=== PATIENT | female | born 1965 | race Two or more races ===

== ENCOUNTER 2016-11-07 08:41 | Outpatient (CLI) | payer BC ==
[~2016-11-07 08:41] MED LIST: BENA20TA2 PO; CARV25TA2 PO; CLOP75TA2 PO; GLYB5TAB7 PO; METF10002 PO
[2016-11-07 09:23] LABS: BASOPHILS % (AUTO) 0.4 % (0.0-2.0); DIFF TOTAL % 100 %; EOSINOPHILS # (AUTO) 0.1 /CMM (0.0-0.7); EOSINOPHILS % (AUTO) 1.3 % (0.0-6.0); HEMATOCRIT 41 % (33-45); HEMOGLOBIN 13.9 g/dL (11.5-14.8); LYMPHOCYTES # (AUTO) 1.9 /CMM (0.8-4.8); LYMPHOCYTES % (AUTO) 46.4 % (20.0-44.0); MEAN CORPUSCULAR HEMOGLOBIN 29 PG (26.0-33.0); MEAN CORPUSCULAR HGB CONC 34 g/dl (31.0-36.0); MEAN CORPUSCULAR VOLUME 85 fL (82-100); MONOCYTES # (AUTO) 0.2 /CMM (0.1-1.30); MONOCYTES % (AUTO) 5.2 % (2.0-12.0); NEUTROPHILS # (AUTO) 1.9 /CMM (1.8-8.9); NEUTROPHILS % (AUTO) 46.7 % (43.0-81.0); PLATELET COUNT (AUTO) 188 /CMM (150-450); RED BLOOD CELL COUNT(AUTO) 4.84 MIL/uL (4.0-5.2)
[2016-11-07 09:37] LABS: ALBUMIN 4.1 g/dL (3.4-5.0); BILIRUBIN,TOTAL 0.3 mg/dL (0.2-1.0); CREATININE 0.7 mg/dL (0.6-1.3); POTASSIUM 4.5 mmol/L (3.5-5.1); TOTAL PROTEIN, SERUM 7.7 g/dL (6.4-8.2)
[2016-11-07 09:45] LABS: THYROID STIMULATING HORMONE 2.57 uIU/mL (0.358-3.74)
== END 2016-11-07 23:59 | disposition home or self-care (01) ==
LOC: LAB 08:41
DX: I10 Essential (primary) hypertension (principal); E11.9 Type 2 diabetes mellitus without complications; E66.9 Obesity, unspecified; R53.83 Other fatigue; R35.0 Frequency of micturition
CPT/HCPCS: 36415; 80053-TC; 82043; 84439-TC; 84443-TC; 84481; 85025-TC; 87086-TC

== ENCOUNTER 2016-11-07 08:51 | Outpatient (CLI) | payer OTHER | END 2016-11-07 23:59 | disposition home or self-care (01) | LOC: MRI 08:51 | DX: M19.012 Primary osteoarthritis, left shoulder (principal); S43.401D Unspecified sprain of right shoulder joint, subsequent encounter; S43.402D Unspecified sprain of left shoulder joint, subsequent encounter | CPT/HCPCS: 73221-TC ==

== ENCOUNTER 2017-01-04 10:38 | Outpatient (CLI) | payer BC ==
[2017-01-04 12:34] LABS: ALBUMIN 4.5 g/dL (3.4-5.0); BILIRUBIN,TOTAL 0.5 mg/dL (0.2-1.0); CALCIUM, SERUM 9.1 mg/dL (8.5-10.1); CREATININE 0.7 mg/dL (0.6-1.3); TOTAL PROTEIN, SERUM 8.2 g/dL (6.4-8.2)
[2017-01-04 12:41] LABS: POTASSIUM 4.6 mmol/L (3.5-5.1)
== END 2017-01-04 23:59 | disposition home or self-care (01) ==
LOC: LAB 10:38
DX: E11.9 Type 2 diabetes mellitus without complications (principal)
CPT/HCPCS: 36415; 80053-TC

== ENCOUNTER 2017-02-26 18:58 | Emergency (ER) | payer BC, OTHER ==
[~2017-02-26] VITALS: Ht 160 cm; Wt 88.9 kg
--- NOTE | 2017-02-26 19:30 | NUR ---
To bed 8 a 51 yo female bibself with c/o "havent had a bowel movement in 3 days and I vomited one time today." Patient is aaox4, ambulatory with steady gait. Reports throbbing pain on the rectum. Patient also reported that she had constipation in the past but "this is worse." Initiated comfort measures. vss. awaiting for er md rausch.
--- NOTE | 2017-02-26 19:44 | NUR ---
started a saline lockon the right ac g20, blood drawn and sent to lab.
[2017-02-26 19:46] LABS: BASOPHILS # (AUTO) 0.1 /CMM (0.0-0.2); BASOPHILS % (AUTO) 0.7 % (0.0-2.0); EOSINOPHILS # (AUTO) 0.1 /CMM (0.0-0.7); EOSINOPHILS % (AUTO) 0.6 % (0.0-6.0); HEMATOCRIT 45 % (33-45); HEMOGLOBIN 14.9 g/dL (11.5-14.8); LYMPHOCYTES # (AUTO) 1.8 /CMM (0.8-4.8); MEAN CORPUSCULAR HEMOGLOBIN 29 PG (26.0-33.0); MEAN CORPUSCULAR HGB CONC 33 g/dl (31.0-36.0); MEAN CORPUSCULAR VOLUME 87 fL (82-100); MONOCYTES # (AUTO) 0.3 /CMM (0.1-1.30); NEUTROPHILS # (AUTO) 7.7 /CMM (1.8-8.9); NEUTROPHILS % (AUTO) 77.7 % (43.0-81.0); PLATELET COUNT (AUTO) 218 /CMM (150-450); RDW COEFFICIENT OF VARIATION 12.8 (11.5-15.0); RED BLOOD CELL COUNT(AUTO) 5.19 MIL/uL (4.0-5.2)
[2017-02-26] MEDS ORDERED: ONDANSETRON HCL/PF 4 MG/2 ML VIAL ONE ×2 (19:49→21:09)
[2017-02-26] MEDS ORDERED: MORPHINE SULFATE INJ 4 MG/ML DISP.SYRIN ONE ×2 (19:49→21:09)
[2017-02-26] MEDS ORDERED: MORPHINE SULFATE INJ 2 MG/ML DISP.SYRIN IV ONE ×2 (20:00→21:30)
[2017-02-26] MEDS ORDERED: ONDANSETRON HCL/PF - ER 4 MG/2 ML VIAL IV ONE ×2 (20:00→21:30)
[2017-02-26 20:02] LABS: ALBUMIN 4.9 g/dL (3.4-5.0); BILIRUBIN,DIRECT 0.1 mg/dL (0.0-0.2); BILIRUBIN,TOTAL 0.5 mg/dL (0.2-1.0); CREATININE 0.9 mg/dL (0.6-1.3); TOTAL PROTEIN, SERUM 8.9 g/dL (6.4-8.2)
--- NOTE | 2017-02-26 20:25 | NUR ---
PT TAKEN TO CT VIA WC
--- NOTE | 2017-02-26 20:34 | NUR ---
patient to radiology.
--- NOTE | 2017-02-26 21:37 | NUR ---
inserted aseptcally a badillo cath on patient per Dr Anne's verbal order, drained about 1100 clear yellow urine. urine collected and sent to lab.
[2017-02-26 21:42] LABS: APPEARANCE,URINE Clear (CLEAR); BILIRUBIN,URINE Negative (NEGATIVE); BLOOD, URINE Negative Ery/uL (NEGATIVE); COLOR,URINE Yellow (YELLOW); KETONES,URINE Trace (NEGATIVE); LEUKOCYTE ESTERASE ,URINE Negative (NEGATIVE); NITRITE, URINE Negative (NEGATIVE); PROTEIN,URINE Negative (NEGATIVE); UROBILINOGEN,URINE 0.2 EU/dL (0.2)
[2017-02-26 21:43] LABS: UGLUCOSE 500 MG/DL mg/dL (NEGATIVE)
[2017-02-26 21:44] LABS: PREGNANCY TEST URINE QUAL NEGATIVE (NEGATIVE)
[2017-02-26 21:54] LABS: ADD URINE CULTURE NO; BACTERIA,URINE None seen /HPF (None Seen); RBC,URINE NONE SEEN /HPF (0-2); SQUAMOUS EPITHELIAL CELL,UR Few /HPF (None Seen); WBC,URINE 0-2 /HPF (0-3)
--- NOTE | 2017-02-26 22:20 | NUR ---
IV removed. Catheter intact and site benign. Morgan Cath removed, kash well. Pressure and 4x4 applied to site. No bleeding noted. Patient discharged to home in stable condition. Written and verbal after care instructions given. Patient verbalizes understanding of instruction. Patient is ambulatory with steady gait, accompanied by family home.
[2017-02-26 22:23] VITALS: BP 142/88
== END 2017-02-26 22:24 | disposition home or self-care (01) ==
LOC: ER 19:00
DX: K59.00 Constipation, unspecified (principal); R33.9 Retention of urine, unspecified; K80.20 Calculus of gallbladder without cholecystitis without obstruction; I10 Essential (primary) hypertension; E11.9 Type 2 diabetes mellitus without complications; Z86.73 Personal history of transient ischemic attack (TIA), and cerebral infarction without residual deficits; Z98.890 Other specified postprocedural states
CPT/HCPCS: 36415; 51701; 74176; 80048; 80076; 81001; 83690; 84703; 85025; 96374; 96375; 99285; A4606; J2270 ×2; J2405 ×2; Z7610; 81000-TC

== ENCOUNTER 2017-03-19 07:51 | Outpatient (CLI) | payer BC, OTHER ==
[2017-03-19 08:40] LABS: BASOPHILS % (AUTO) 0.4 % (0.0-2.0); EOSINOPHILS # (AUTO) 0.1 /CMM (0.0-0.7); EOSINOPHILS % (AUTO) 1.3 % (0.0-6.0); HEMATOCRIT 37 % (33-45); HEMOGLOBIN 12.9 g/dL (11.5-14.8); LYMPHOCYTES # (AUTO) 2.6 /CMM (0.8-4.8); LYMPHOCYTES % (AUTO) 54.4 % (20.0-44.0); MEAN CORPUSCULAR HEMOGLOBIN 30 PG (26.0-33.0); MEAN CORPUSCULAR HGB CONC 35 g/dl (31.0-36.0); MEAN CORPUSCULAR VOLUME 85 fL (82-100); MONOCYTES # (AUTO) 0.2 /CMM (0.1-1.30); MONOCYTES % (AUTO) 4.9 % (2.0-12.0); NEUTROPHILS # (AUTO) 1.8 /CMM (1.8-8.9); PLATELET COUNT (AUTO) 186 /CMM (150-450); RDW COEFFICIENT OF VARIATION 12.9 (11.5-15.0); RED BLOOD CELL COUNT(AUTO) 4.32 MIL/uL (4.0-5.2); WHITE BLOOD COUNT (AUTO) 4.7 K/uL (4.3-11.0)
[2017-03-19 08:59] LABS: BILIRUBIN,TOTAL 0.4 mg/dL (0.2-1.0); CALCIUM, SERUM 8.7 mg/dL (8.5-10.1); CREATININE 0.7 mg/dL (0.6-1.3); POTASSIUM 4.3 mmol/L (3.5-5.1); TOTAL PROTEIN, SERUM 7.4 g/dL (6.4-8.2)
[2017-03-19 13:38] LABS: THYROID STIMULATING HORMONE 3.179 uIU/mL (0.358-3.74)
== END 2017-03-19 23:59 | disposition home or self-care (01) ==
LOC: LAB 07:51
DX: E11.9 Type 2 diabetes mellitus without complications (principal); I10 Essential (primary) hypertension; K21.9 Gastro-esophageal reflux disease without esophagitis; R53.81 Other malaise; R53.83 Other fatigue
CPT/HCPCS: 36415; 80053-TC; 84439-TC; 84443-TC; 84481; 85025-TC